=== PATIENT | male | born 1975 | race Caucasian/White ===

== ENCOUNTER 2017-06-26 11:01 | Inpatient (IN) | payer OTHER ==
[2017-06-26] MEDS ORDERED: NS 0.9% 1000 ML* 1,000 ML IV ONE (11:40)
[2017-06-26 12:12] LABS: Hematocrit 50 % (42-52); Hemoglobin 17.4 g/dl (14.0-18.0); Mean Corpuscular HGB Conc 35 g/dl (31-36); Mean Corpuscular Hemoglobin 31 pg (27-31); Mean Corpuscular Volume 90 fL (80-94); Red Blood Count 5.61 10^6/ul (4.0-5.4); Red Cell Distribution Width 14 % (10.5-15); White Blood Count 11.3 10^3/ul (3.5-10.8)
[2017-06-26 12:18] LABS: INR 1.02 (0.77-1.02)
[2017-06-26 12:20] LABS: EGFR Non-African American 51.9 (>60)
[2017-06-26] MEDS ORDERED: Potassium Chlor TAB* 20 MEQ TAB.ER PO ONE (12:35)
[2017-06-26] MEDS ORDERED: Magnesium Sulfate 1 GM IV* 1 GM/100 ML BAG IV ONE (12:35)
[2017-06-26 12:37] LABS: Mean Platelet Volume 9 um3 (7.4-10.4); Platelet Count 68 10^3/ul (150-450)
[2017-06-26 12:38] LABS: ABS Basophils 0 10^3/ul (0-0.2); ABS Eosinophils 0 10^3/ul (0-0.6); ABS Lymphocytes 0.3 10^3/ul (1.0-4.8); ABS Monocytes 0.8 10^3/ul (0-0.8); ABS Neutrophils 10.2 10^3/ul (1.5-7.7); ABS Nucleated RBC 0 10^3/ul; Eosinophil % 0 % (0-6); Lymphocyte % 2.5 % (25-47); Nucleated Red Blood Cells % 0.1
[2017-06-26] MEDS: KCL 10 MEQ/50 ML IVPREMIX* 10 MEQ/50 ML BAG IV SCH ×3 (13:07→16:34)
--- NOTE | 2017-06-26 13:15 | RAD ---
INDICATION: Seizure COMPARISON: None TECHNIQUE: An AP portable view obtained at 1223 hours is submitted. FINDINGS: Bones/Soft Tissues: There are no acute bony findings. Cardiomediastinal: The cardiomediastinal silhouette is normal. Lungs: There are no infiltrates. Pleura: There are no pleural effusions. Other: None IMPRESSION: NO ACTIVE DISEASE.
[2017-06-26] MEDS ORDERED: Temazepam CAP* 15 MG PO PRN (14:32)
[2017-06-26] MEDS ORDERED: levETIRAcetam TAB* 500 MG PO ONE ×2 (14:45)
[2017-06-26] MEDS ORDERED: LORazepam TAB(*) 1 MG PO PRN (14:46)
--- NOTE | 2017-06-26 15:36 | RAD ---
Indication: Seizure disorder. Fall today. Comparison: November 23, 2015 MRI. Technique: Noncontrast CT vertex of skull through foramen magnum. Report: Mild RIGHT temporal scalp edema without evidence for a loculated hematoma. Negative for calvarial or skull base fracture. The sulci, ventricles, and basal cisterns are normal for age. Linn matter white matter differentiation is preserved without evidence for edema. No intra or extra axial hemorrhage is detected. Unremarkable visualized orbital contents. The visualized paranasal sinuses and mastoid air spaces are clear. IMPRESSION: 1. No CT evidence for traumatic brain injury or acute intracranial process. 2. Mild RIGHT temporal scalp edema without evidence for a loculated hematoma.
[2017-06-26] MEDS: Magnesium Oxide TAB* 400 MG PO SCH (16:18)
[2017-06-26] MEDS: Thiamine TAB* 100 MG TAB PO SCH (16:18)
[2017-06-26] MEDS: Folic Acid TAB* 1 MG PO SCH (16:18)
[2017-06-26 17:21] LABS: Urine Appearance Clear; Urine Blood Negative (Negative); Urine Color Amber; Urine Ketones 1+ (Negative); Urine Protein 2+(100 mg/dL) (Negative); Urine Specific Gravity 1.024 (1.010-1.030); Urine Urobilinogen Positive (Negative)
[2017-06-26] MEDS: Sucralfate TAB* 1 GM PO SCH (17:28)
[2017-06-26] MEDS: NS 0.9% w/ 20 Meq KCL 1000 ML* 1,000 ML IV SCH (18:06)
--- NOTE | 2017-06-26 19:53 | HP ---
CC: Angel Castano NP * HISTORY AND PHYSICAL: DATE OF ADMISSION: 06/26/17 PRIMARY CARE PROVIDER: Angel Castano NP. NEUROLOGIST: Dr. Simmons. CHIEF COMPLAINT: Seizure. HISTORY OF PRESENT ILLNESS: Mr. Harris is a 42-year-old male with history of alcoholism, who stated that he stopped drinking alcohol a week ago with plans to go to inpatient rehab. He also has history of seizure disorder and his last seizure was 7 months ago. He presented today after a seizure that he had when he was in public [employer] waiting for his AAA meeting. The patient stated that his seizure was as usual, which usually starts with the patient seeing "rainbow drops" in his right eye, then he lost consciousness, but he bit his tongue and had witnessed generalized tonic-clonic seizure. PAST MEDICAL HISTORY: 1. History of seizure disorder. 2. History of alcoholism. 3. History of lower back surgery, which is minimally invasive diskectomy. MEDICATIONS: Include Keppra ER 750 mg daily. ALLERGIES: No known drug allergies. FAMILY HISTORY: Positive for mother with hypertension. Father unknown. SOCIAL HISTORY: The patient denies any tobacco or drug use. He states that he drinks approximately a gallon of vodka in 3 days and he had stopped drinking a week ago. He is currently unemployed and lives with his mother who is his surrogate. Mother's name is Mara Sharma. REVIEW OF SYSTEMS: Please see history of present illness. In addition to the above mentioned, the patient stated that he had nausea and vomiting for the past 24 hours and he vomited approximately 3 to 4 times. In regards to his seizures, his last seizure was 6 months ago and is usually generalized tonic clonic. Due to his seizure disorder, he does not drive. The patient also states that he has a history of gastroesophageal reflux disease and painful swallowing and acid reflux disease. The patient also has been complaining of coughing for the past couple of days. He denies any fevers. All the remaining 12 systems were reviewed with the patient and were otherwise negative. Please also note that the patient is a rather poor historian and he has problems with recall. PHYSICAL EXAMINATION GENERAL: The patient is a very pleasant 42-year-old male, who is in no acute distress. Alert, awake, and oriented x3. VITAL SIGNS: Blood pressure 146/101, heart rate of 102 and irregular, respiratory rate is 15, oxygen saturation 93% on room air, temperature of 96.8. HEENT: Head: Atraumatic, normocephalic. Eyes: Pupils equal, round, and reactive to light and accommodation. Oropharynx clear. Mucosa moist.tongue bite cook on left side. NECK: Supple. No JVD, no bruits bilaterally. RESPIRATORY: Clear to auscultation bilaterally. CARDIOVASCULAR: Irregularly irregular rhythm. No murmur. ABDOMEN: Soft, nontender. Bowel sounds present in all 4 quadrants. EXTREMITIES: There is no edema. Pulses are +2 bilaterally. No clubbing or cyanosis. NEUROLOGIC: Speech clear. Cranial nerves II through XII grossly intact. Motor strength is 5/5 bilaterally. PSYCHIATRIC EVALUATION: Oriented x3, with no evidence of anxiety or depression. SKIN: No ecchymotic areas or rashes noted. DIAGNOSTIC STUDIES/LAB DATA: Shows sodium of 131, potassium 2.5, chloride 175 , carbon dioxide 38, anion gap of 18, BUN 25, creatinine 1.48. Liver function test showed bilirubin 2.5, AST of 79, ALT of 84, glucose 186. TSH 0.9. CBC: White blood cell count 11.2, hemoglobin 17.4, hematocrit 50, platelets 68, 000. Serum alcohol level below detectable. INR of 1.02. The patient's EKG showed sinus tachycardia with heart rate of 107 beats per minute with nonspecific ST-T changes in V2 to V4 likely due to elevation of J point. Portable chest x-ray, impression: "No active disease." ASSESSMENT AND PLAN: 1. In regards to the patient's another seizure and patient with history of seizure disorder, I discussed the case with Dr. Simmons. We will obtain Keppra level. Place the patient on Keppra [address] general seizure precautions. At this point, the patient had not been drinking alcohol for 7 days and possibility of alcohol withdrawal seizures is low. 2. In regards to his alcoholism, I will place the patient on Ativan on a p.r.n. basis as well as thiamine and folate daily. 3. The patient's metabolic derangements including marked electrolyte abnormalities with hypomagnesemia, hypokalemia and hypochloremia is most likely due to nausea and vomiting. The patient also may have partially starvation ketosis. At this point, the patient is going to be placed on intravenous hydration, potassium and magnesium is going to be replaced and recheck levels in the morning. 4. Gastroesophageal reflux disease. The patient is going to be placed on omeprazole twice a day and Carafate. 5. In regards to the patient's thrombocytopenia likely due to alcoholism, we will follow up platelet levels on a daily basis. 6. The patient has acute kidney injury with a creatinine of 1.48 likely due to dehydration secondary to nausea and vomiting. The patient is going to be placed on intravenous fluids and his basic metabolic panel is going to be obtained in the morning. 7. For DVT prophylaxis, the patient is to be encouraged with ambulation. 8. Due to his severe metabolic derangement, I suspect the patient is going to be in inpatient for at least 2 days. TIME SPENT: Approximately 62 minutes were spent on admission of this patient, more than half the time was spent [id number] with the patient during the interview and physical exam. [id number]/[id number] #: [id number] COT[facility]
[2017-06-26] MEDS: Omeprazole CAP* 20 MG PO SCH (20:41)
[2017-06-26] MEDS: Acetaminophen TAB* 325 MG PO PRN (20:41)
[2017-06-26] MEDS: levETIRAcetam TAB* 500 MG PO SCH (20:41)
[2017-06-26] MEDS: LORazepam TAB(*) 1 MG PO PRN (21:30)
[2017-06-27 05:15] LABS: ABS Basophils 0 10^3/ul (0-0.2); ABS Eosinophils 0 10^3/ul (0-0.6); ABS Lymphocytes 1.3 10^3/ul (1.0-4.8); ABS Monocytes 0.8 10^3/ul (0-0.8); ABS Neutrophils 5.4 10^3/ul (1.5-7.7); ABS Nucleated RBC 0 10^3/ul; Eosinophil % 0.2 % (0-6); Hematocrit 46 % (42-52); Hemoglobin 15.9 g/dl (14.0-18.0); Lymphocyte % 17.5 % (25-47); Mean Corpuscular HGB Conc 35 g/dl (31-36); Mean Corpuscular Hemoglobin 31 pg (27-31); Mean Corpuscular Volume 89 fL (80-94); Mean Platelet Volume 10 um3 (7.4-10.4); Nucleated Red Blood Cells % 0.1; Platelet Count 59 10^3/ul (150-450); Red Blood Count 5.09 10^6/ul (4.0-5.4); Red Cell Distribution Width 14 % (10.5-15); White Blood Count 7.5 10^3/ul (3.5-10.8)
[2017-06-27 05:19] LABS: EGFR Non-African American 71.6 (>60)
[2017-06-27] MEDS ORDERED: Potassium Chlor TAB* 10 MEQ TAB.ER PO ONE (07:31)
[2017-06-27] MEDS: NS 0.9% w/ 20 Meq KCL 1000 ML* 1,000 ML IV SCH ×2 (07:44→17:59)
[2017-06-27] MEDS: Acetaminophen TAB* 325 MG PO PRN (07:49)
[2017-06-27] MEDS: Omeprazole CAP* 20 MG PO SCH ×2 (07:50→20:25)
[2017-06-27] MEDS: Folic Acid TAB* 1 MG PO SCH (07:50)
[2017-06-27] MEDS: levETIRAcetam TAB* 500 MG PO SCH ×2 (07:50→20:25)
[2017-06-27] MEDS: Thiamine TAB* 100 MG TAB PO SCH (07:50)
[2017-06-27] MEDS: Sucralfate TAB* 1 GM PO SCH (07:50)
[2017-06-27] MEDS: Magnesium Oxide TAB* 400 MG PO SCH (07:50)
[2017-06-27] MEDS ORDERED: KCL 20 MEQ/100 ML IVPREMIX* 20 MEQ/100 ML BAG IV SCH ×2 (08:00→20:00)
--- NOTE | 2017-06-27 08:38 | PN ---
Subjective Date of Service: 06/27/17 Interval History: Pt feels well, noticed a bruise on left forearm this aM. ? of withdrawal symptoms at night and started on WAM, currently no symptoms of withdrawal Objective Active Medications: Acetaminophen (Tylenol Tab*) 650 mg PO Q6H PRN PRN Reason: FEVER/PAIN Last Admin: 06/27/17 07:49 Dose: 650 mg Folic Acid (Folvite Tab*) 1 mg PO DAILY [facility] Last Admin: 06/27/17 07:50 Dose: 1 mg Potassium Chloride/Sodium Chloride (Ns 0.9% W/ 20 Meq Kcl 1000 Ml*) 1,000 mls @ 100 mls/hr IV PER RATE [facility] Last Admin: 06/27/17 07:44 Dose: 100 mls/hr Potassium Chloride (Potassium Chloride 10 Meq/50 Ml Ivpremix*) 10 meq in 50 mls @ 50 mls/hr IV Q1H [facility] Stop: 06/27/17 12:59 Levetiracetam (Keppra Tab*) 500 mg PO BID [facility] Last Admin: 06/27/17 07:50 Dose: 500 mg Lorazepam (Ativan Tab(*)) 1 mg PO Q2H PRN; Protocol PRN Reason: alcohol withdrawal Last Admin: 06/26/17 21:30 Dose: 1 mg Magnesium Oxide (Magox 400 Tab*) 800 mg PO DAILY [facility] Last Admin: 06/27/17 07:50 Dose: 800 mg Omeprazole (Prilosec Cap*) 20 mg PO BID [facility] Last Admin: 06/27/17 07:50 Dose: 20 mg Sucralfate (Carafate*) 1 gm PO TID AC [facility] Last Admin: 06/27/17 07:50 Dose: 1 gm Temazepam (Restoril Cap*) 15 mg PO BEDTIME PRN PRN Reason: INSOMNIA Thiamine HCl (Vitamin B-1 Tab*) 100 mg PO DAILY [facility] Last Admin: 06/27/17 07:50 Dose: 100 mg Vital Signs - 8 hr 06/27/17 06/27/17 06/27/17 01:09 02:00 04:00 Temperature 98.0 F Pulse Rate 92 Respiratory 20 20 20 Rate Blood Pressure 130/79 (mmHg) O2 Sat by Pulse 96 Oximetry 06/27/17 06/27/17 06/27/17 04:22 06:00 08:00 Temperature Pulse Rate 78 88 Respiratory 20 20 20 Rate Blood Pressure 140/83 148/92 (mmHg) O2 Sat by Pulse 96 96 Oximetry 06/27/17 08:01 Temperature 98.4 F Pulse Rate 76 Respiratory 20 Rate Blood Pressure 135/84 (mmHg) O2 Sat by Pulse 99 Oximetry Oxygen Devices in Use Now: None Appearance: 42 yo m in nAD, aAOx3 Eyes: No Scleral Icterus, PERRLA Ears/Nose/Mouth/Throat: NL Teeth, Lips, Gums, - - bit his tongue on left durin the seizure yesterday Neck: NL Appearance and Movements; NL JVP, Trachea Midline Respiratory: Symmetrical Chest Expansion and Respiratory Effort, Clear to Auscultation Cardiovascular: NL Sounds; No Murmurs; No JVD, RRR Abdominal: NL Sounds; No Tenderness; No Distention Lymphatic: No Cervical Adenopathy Extremities: No Edema, No Clubbing, Cyanosis Skin: No Nodules or Sclerosis, - - left antecubital- area a contusion with a bruise and ecchymosis at 44 cm in diam Neurological: Alert and Oriented x 3, NL Muscle Strength and Tone Result Diagrams: 06/27/17 04:49 06/27/17 04:49 Assess/Plan/Problems-Billing Assessment: 42 yo M with h/o ETOH abuse and seizure disorder presents with seizure, N/V and hypokalemia - Patient Problems (1) Seizure disorder Comment: Keppra levels still pending. Keppra dose increased to [address] Simmons suspect noncompliance (2) Alcoholism Comment: Last drink 8 days ago ? withdrawal symptoms at night and WAM started, although no symptoms right now. cont WAM for now Cont Thiamine/folate and SW consult (3) PRESTON (acute kidney injury) Comment: due to dehydration-resolving (4) Hypokalemia Comment: severe, still present cont K replacement cont telem (5) Hypomagnesemia Comment: on Mg Ox, improved (6) Thrombocytopenia Comment: exacerbation of chronic due to ETOH abuse (7) LFT elevation Comment: due to ETOH liver disease, will recheck in aM (8) DVT prophylaxis Comment: low risk, ambulation Status and Disposition: OBV changed to inpatient to continuation of severe hypokalemia
[2017-06-27] MEDS: KCL premix 10 MEQ/50 ML IVPREMIX x 4 RUNS IV SCH ×7 (09:49→23:47)
[2017-06-27 12:50] LABS: EGFR Non-African American 76.3 (>60)
[2017-06-27] MEDS ORDERED: Potassium Chlor TAB* 20 MEQ TAB.ER PO ONE (19:44)
[2017-06-27] MEDS: LORazepam TAB(*) 1 MG PO PRN (20:40)
[2017-06-28] MEDS: KCL premix 10 MEQ/50 ML IVPREMIX x 4 RUNS IV SCH (01:19)
[2017-06-28 05:29] LABS: ABS Basophils 0 10^3/ul (0-0.2); ABS Eosinophils 0.1 10^3/ul (0-0.6); ABS Monocytes 0.6 10^3/ul (0-0.8); ABS Neutrophils 3.1 10^3/ul (1.5-7.7); ABS Nucleated RBC 0 10^3/ul; Eosinophil % 1.5 % (0-6); Hematocrit 44 % (42-52); Lymphocyte % 20.5 % (25-47); Mean Corpuscular HGB Conc 34 g/dl (31-36); Mean Corpuscular Hemoglobin 31 pg (27-31); Mean Corpuscular Volume 92 fL (80-94); Mean Platelet Volume 9 um3 (7.4-10.4); Nucleated Red Blood Cells % 0; Platelet Count 62 10^3/ul (150-450); Red Blood Count 4.85 10^6/ul (4.0-5.4); Red Cell Distribution Width 14 % (10.5-15); White Blood Count 4.8 10^3/ul (3.5-10.8)
[2017-06-28] MEDS: levETIRAcetam TAB* 500 MG PO SCH (08:23)
[2017-06-28] MEDS: Folic Acid TAB* 1 MG PO SCH (08:23)
[2017-06-28] MEDS: Magnesium Oxide TAB* 400 MG PO SCH (08:24)
[2017-06-28] MEDS: Omeprazole CAP* 20 MG PO SCH (08:24)
[2017-06-28] MEDS: Thiamine TAB* 100 MG TAB PO SCH (08:24)
--- NOTE | 2017-06-28 08:31 | ED ---
Tee Rizzo Thomas, scribed for Francisco Bustillos MD on 06/26/17 at 1154 . Complex/Multi-Sys Presentation - HPI Summary HPI Summary: The patient is a 42 year old male brought in by ambulance after he had a seizure earlier today. The seizure was witnessed, was three minutes in duration , and was whole-body. The patient has a history of seizures and alcohol detox, and the patient had an alcohol binge about a week ago. The patient last drank about a week ago. He is been seen by a neurologist of which he does not remember the name. He takes a once-daily seizure medication that he does not remember the name. - History Of Current Complaint Chief Complaint: EDSeizure Time Seen by Provider: 06/26/17 11:08 Hx Obtained From: Patient Onset/Duration: Sudden Onset, Lasting Minutes - 3, Resolved Timing: Intermittent, Lasting: - 3 Severity Currently: None Severity Initially: Moderate Alleviating Factor(s): Spontaneous resolution Associated Signs And Symptoms: Negative: Fever - Allergies/Home Medications Allergies/Adverse Reactions: Allergies Allergy/AdvReac Type Severity Reaction Status Date / Time No Known Allergies Allergy Verified 11/09/15 11:35 Home Medications: Home Medications Levetiracetam XR TAB(NF) [Keppra XR (NF)] 750 mg PO QAM 06/26/17 [History Confirmed 06/26/17] PMH/Surg Hx/FS Hx/Imm Hx Endocrine/Hematology History: Denies: Hx Diabetes Cardiovascular History: Reports: Hx Hypertension Denies: Hx Pacemaker/ICD History: Denies: Hx Renal Disease Sensory History: Denies: Hx Hearing Aid Neurological History: Reports: Hx Seizures Psychiatric History: Denies: Hx Panic Disorder - Surgical History Surgery Procedure, Year, and Place: CYST REMOVED - Rt SHOULDER BLADE Infectious Disease History: No Infectious Disease History: Denies: Traveled Outside the [place] in Last 30 Days - Family History Known Family History: Negative: Blood Disorder - Social History Alcohol Use: Occasionally Alcohol Amount: reports etoh 06/20/17 Substance Use Type: Reports: None Smoking Status (MU): Never Smoked Tobacco Review of Systems Negative: Fever Neurological: Other - Seizure (witnessed) All Other Systems Reviewed And Are Negative: Yes Physical Exam - Summary Physical Exam Summary: VITAL SIGNS: Reviewed. GENERAL: Patient is a well-developed and nourished male who is lying comfortable in the stretcher. Patient is not in any acute respiratory distress. HEAD AND FACE: No signs of trauma. No ecchymosis, hematomas or skull depressions. No sinus tenderness. EYES: PERRLA, EOMI x 2, No injected conjunctiva, no nystagmus. No photophobia. EARS: Hearing grossly intact. Ear canals and tympanic membranes are within normal limits. MOUTH: Oropharynx within normal limits. NECK: Supple, trachea is midline, no adenopathy, no JVD, no carotid bruit, no c- spine tenderness, neck with full ROM. No meningeal signs, no Kernig's or brudzinskis signs. CHEST: Symmetric, no tenderness at palpation LUNGS: Clear to auscultation bilaterally. No wheezing or crackles. CVS: Tachycardia. Regular rhythm, S1 and S2 present, no murmurs or gallops appreciated. ABDOMEN: Soft, non-tender. No signs of distention. No rebound no guarding, and no masses palpated. Bowel sounds are normal. EXTREMITIES: FROM in all major joints, no edema, no cyanosis or clubbing. NEURO: Alert and oriented x 3. No acute neurological deficits. Speech is normal and follows commands. SKIN: Dry and warm GCS: 15 Triage Information Reviewed: Yes Vital Signs On Initial Exam: Initial Vitals Temp Pulse Resp BP Pulse Ox 96.8 F 113 18 142/103 91 06/26/17 11:09 06/26/17 11:09 06/26/17 11:09 06/26/17 11:09 06/26/17 11:09 Vital Signs Reviewed: Yes Diagnostics - Vital Signs Vital Signs Temp Pulse Resp BP Pulse Ox 06/26/17 11:09 96.8 F 113 18 142/103 91 - Laboratory Result Diagrams: 06/26/17 11:53 06/26/17 11:53 Lab Statement: Any lab studies that have been ordered have been reviewed, and results considered in the medical decision making process. - Radiology CXR Xray Interpretation: No Acute Changes - NO ACTIVE DISEASE. Dr. Bustillos has reviewed this report. Radiology Interpretation Completed By: Radiologist - CT CT Brain CT Interpretation: No Acute Changes - 1. No CT evidence for traumatic brain injury or acute intracranial process. 2. Mild RIGHT temporal scalp edema without evidence for a loculated hematoma. Dr. Bustillos has reviewed this report. CT Interpretation Completed By: Radiologist - EKG 11:58 Cardiac Rate: Tachycardia EKG Rhythm: Sinus Tachycardia - at 107 BPM. EKG Interpretation: Q-wave in V2. Complex Multi-Symp Course/Dx Assessment/Plan: The patient is a 42 year old male brought in by ambulance after he had a seizure earlier today. The seizure was witnessed, was three minutes in duration, and was whole-body. The patient has a history of seizures and alcohol detox, and the patient had an alcohol binge about a week ago. The patient last drank about a week ago. He is been seen by a neurologist of which he does not remember the name. He takes a once-daily seizure medication that he does not remember the name. Test results show WBC 11.3, potassium 2.5, acute renal insufficiency, increased LFTs. EKG shows sinus tachycardia at 107 BPM with Q wave in V2. CT Brain was obtained. In the ED course, the patient was given IV fluids, folic acid, thyamine, potassium chloride, and magnesium. I discussed the findings and tests with Dr. Moreira, who admits the patient. The patient is hemodynamically stable and alert and oriented x3. - Diagnoses Provider Diagnoses: Seizures, Dehydration, Renal failure, Hypokalemia - Physician Notifications Discussed Care Of Patient With: Donna Moreira Time Discussed With Above Provider: 13:14 Instructed by Provider To: Admit As Inpatient Discharge - Discharge Plan Condition: Fair Disposition: ADMITTED TO [facility] documentation as recorded by the Tee ching Thomas accurately reflects the service I personally performed and the decisions made by me, Francisco Bustillos MD.
[2017-06-28 08:33] LABS: EGFR Non-African American 83.5 (>60)
[2017-06-28] MEDS ORDERED: Pneumococcal *Vac Polyvalent 0.5 ML VIAL IM ONE (09:00)
[2017-06-28] MEDS ORDERED: Influenza VAC *QUAD* 2017-18* 0.5 ML SYRINGE IM ONE (09:00)
[2017-06-28 10:18] VITALS: BP 138/89
--- NOTE | 2017-06-29 05:04 | DS ---
CC: Angel Castano, FELIPA; Dr. Simmons * DISCHARGE SUMMARY: DATE OF ADMISSION: 06/26/17 DATE OF DISCHARGE: 06/28/17 PRIMARY CARE PROVIDER: CLARITA Pascual. DISCHARGE DIAGNOSES: 1. Seizure in a patient with history of seizure disorder. 2. Severe hypokalemia and hypomagnesemia. 3. Dehydration. 4. History of alcoholism. 5. History of medical noncompliance. MEDICATIONS AT DISCHARGE: Include: 1. Keppra 500 mg b.i.d. 2. Thiamine 100 mg daily. 3. Folate 1 mg daily. 4. Potassium chloride 20 mEq daily for a total of 6 days, then stop. LABORATORY DATA/DIAGNOSTIC STUDIES: Laboratory studies at discharge include: On 06/28/17, sodium of 135, potassium 2.8, chloride 100, carbon dioxide 29, BUN 16, creatinine 0.98. Liver function test showed a total bilirubin of 1.7 and AST of 83, ALT of 79, alkaline phosphatase of 32. TSH was noted at admission to be 0.91. The patient's magnesium level today was 2.3. Keppra level on admission was below the testable. Brain CT obtained on 06/26/17 showed, impression: "No CT evidence of traumatic brain injury or acute intracranial process. Mid right temporal scalp edema without evidence of a loculated hematoma." HOSPITALIZATION COURSE: Rishi Harris is a 42-year-old male who has history of alcoholism and who quit drinking 7 days prior to presenting to the emergency room after he had a seizure in the local library. The patient stated that he had not been really compliant with his medications. In fact, his Keppra level was below the testable at admission. I discussed the case with Dr. Simmons who, just before Keppra level was known in the patient's serum, recommended for the patient to be switched to Keppra 500 mg p.o. b.i.d. The patient was also noted to have severe hypokalemia and hypomagnesemia. I suspect he had mild alcoholic gastritis and developed nausea and vomiting prior to presentation to the ED. His electrolytes were replaced. The patient was rehydrated. He also had an acute kidney injury with a creatinine of 1.48 at admission, which resolved by the time of discharge. He was evaluated by social work for possibility of inpatient rehabilitation. He is going to follow up with AA meetings as outpatient. The patient was multiple times counseled in regards to cessation of alcohol use and medication compliance. He is to follow up with his primary care provider within approximately 4 to 7 days after discharge and with Dr. Simmons within the next month. The patient was educated about no driving until he is cleared for driving by Dr. Simmons. He, apparently, does not own a car. PHYSICAL EXAMINATION AT THE TIME OF DISCHARGE: Blood pressure of 144/98, heart rate of 83 and regular, respiratory rate of 20, oxygen saturation 98% on room air, temperature 98.2. General: Patient is a very pleasant 42-year-old male, who is in no acute distress. Alert, awake, and oriented x3. HEENT: Head atraumatic, normocephalic. Eyes: Pupils are equal, reactive to light and accommodation. Oropharynx is clear. Mucosa moist. Neck: Supple. No JVD. No bruits bilaterally. Cardiovascular: Regular rate and rhythm. No murmur. Respiratory: Clear to auscultation bilaterally. Abdomen: Soft, nontender. Bowel sounds present in all 4 quadrants. Extremities: There is no edema. Pulses are +2 bilaterally. No clubbing or cyanosis. On neuro evaluation, speech is clear. Cranial nerves II through XII grossly intact. Motor strength is 5/5 bilaterally. On evaluation of the skin, the patient had a contusion on the left antecubital fossa medial area. Otherwise no rashes or ecchymotic areas are noted. Please note that this is a short summary of the patient's hospitalization, please refer to further medical records for details. TIME SPENT: Approximately 35 minutes were spent on the patient's discharge. [id number]/[facility] #: [id number] [facility]
== END 2017-06-28 11:20 | disposition home or self-care (01) | DRG 53 ==
LOC: ED 11:01 → MEDTELE 14:29
PROVIDERS: ADMIT Internal Medicine; ATTEND Internal Medicine
DX: G40.909 Epilepsy, unspecified, not intractable, without status epilepticus (principal); N17.9 Acute kidney failure, unspecified; D69.6 Thrombocytopenia, unspecified; E87.1 Hypo-osmolality and hyponatremia; E83.42 Hypomagnesemia; I10 Essential (primary) hypertension; E87.6 Hypokalemia; S50.12XA Contusion of left forearm, initial encounter; X58.XXXA Exposure to other specified factors, initial encounter; Y92.239 Unspecified place in hospital as the place of occurrence of the external cause; E86.0 Dehydration; F10.20 Alcohol dependence, uncomplicated; Y90.9 Presence of alcohol in blood, level not specified; R00.0 Tachycardia, unspecified; K21.9 Gastro-esophageal reflux disease without esophagitis; K70.9 Alcoholic liver disease, unspecified; K29.20 Alcoholic gastritis without bleeding; Z56.0 Unemployment, unspecified; Z82.49 Family history of ischemic heart disease and other diseases of the circulatory system; Z23 Encounter for immunization; Z91.14 Patient's other noncompliance with medication regimen
CPT/HCPCS: 36415; 70450; 71045; 80048; 80053; 80076; 80177; 80320; 81003; 81015; 83735; 84443; 85025; 85610; 90686; 90732; 93005; 99284; A9270-GY; G0480; J3475; J3480

== ENCOUNTER 2017-09-09 09:02 | Emergency (ER) | payer OTHER ==
[2017-09-09] MEDS ORDERED: Thiamine IV* 100 MG, Folic Acid IV* 1 MG, Multiple Vitamin IV ADULT* 10 ML in NS 0.9% 1... IV ONE (09:44)
[2017-09-09 09:53] LABS: ABS Basophils 0 10^3/ul (0-0.2); ABS Eosinophils 0.2 10^3/ul (0-0.6); ABS Lymphocytes 2.6 10^3/ul (1.0-4.8); ABS Monocytes 0.3 10^3/ul (0-0.8); ABS Neutrophils 3.6 10^3/ul (1.5-7.7); ABS Nucleated RBC 0 10^3/ul; Eosinophil % 2.6 % (0-6); Hematocrit 44 % (42-52); Hemoglobin 14.9 g/dl (14.0-18.0); Lymphocyte % 38.8 % (25-47); Mean Corpuscular HGB Conc 34 g/dl (31-36); Mean Corpuscular Hemoglobin 30 pg (27-31); Mean Corpuscular Volume 89 fL (80-94); Mean Platelet Volume 8.2 um3 (7.4-10.4); Nucleated Red Blood Cells % 0; Platelet Count 248 10^3/ul (150-450); Red Blood Count 4.94 10^6/ul (4.0-5.4); Red Cell Distribution Width 14 % (10.5-15); White Blood Count 6.7 10^3/ul (3.5-10.8)
[2017-09-09 10:02] LABS: INR 0.83 (0.77-1.02)
[2017-09-09 10:12] LABS: EGFR Non-African American 86.5 (>60)
[2017-09-09] MEDS ORDERED: Thiamine IV* 100 MG/ML 2 ML VIAL ONE (10:51)
[2017-09-09 13:00] LABS: Urine Appearance Clear; Urine Blood 1+ (Negative); Urine Color Yellow; Urine Ketones Trace (Negative); Urine Protein Negative (Negative); Urine Specific Gravity 1.006 (1.010-1.030); Urine Urobilinogen Negative (Negative)
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
[2017-09-09 17:00] VITALS: BP 139/94
== END 2017-09-09 16:59 | disposition home or self-care (01) ==
LOC: ED 09:02
DX: F10.10 Alcohol abuse, uncomplicated (principal)
CPT/HCPCS: 36415; 80053; 80177; 80307; 80320; 81003; 81015; 82550; 83735; 84484; 85025; 85610; 85730; 87086; 93005; 99283; G0480; J3411